=== PATIENT | male | born 1995 | race African-American/Black ===

== ENCOUNTER 2017-07-01 20:13 | Emergency (ER) | payer MEDICAID ==
[~2017-07-01 20:13] MED LIST: ALBU6.7H INH
== END 2017-07-01 21:15 | disposition left against medical advice (07) ==
LOC: ER 21:07
DX: J45.909 Unspecified asthma, uncomplicated (principal); Z53.21 Procedure and treatment not carried out due to patient leaving prior to being seen by health care provider

== ENCOUNTER 2024-12-12 01:57 | Emergency (ER) | payer SELFPAY ==
[~2024-12-12] VITALS: Ht 185.4 cm; Wt 78.0 kg
[~2024-12-12 01:57] MED LIST changes: -ALBU6.7H INH; +ALBU6.7H15 INH
[2024-12-12] MEDS: MAGNESIUM 2 G PREMIX 50 ML IV ONE (03:18)
[2024-12-12] MEDS: METHYLPREDNISOLONE SOD SUCC 125MG/2ML (ACT-O-VIAL) IV STA (03:18)
[2024-12-12] MEDS ORDERED: ALBU90AE INH (05:09)
[2024-12-12] MEDS ORDERED: BECL10.6 INH (05:09)
[2024-12-12] MEDS: ALBUTEROL (0.083%) 2.5MG/3ML NEB HHN STA (05:22)
[2024-12-12] MEDS: IPRATROPIUM BROMIDE (0.02%) 0.5MG/2.5ML NEB HHN STA (05:22)
[2024-12-12 05:23] VITALS: PULSE 82; RESP 18; O2SAT 98
[2024-12-12 06:00] VITALS: BP 131/67; PULSE 87; RESP 16; TEMP 36.9; O2SAT 98
== END 2024-12-12 06:25 | disposition home or self-care (01) ==
LOC: ER 01:57
DX: J45.901 Unspecified asthma with (acute) exacerbation (principal); F20.9 Schizophrenia, unspecified; F32.A Depression, unspecified
CPT/HCPCS: 71045; 94640; 96365; 96375; 99284; J3475; J2919; Z7610 ×2; 94070; 94664; 98960